=== PATIENT | female | born 1955 | race Caucasian/White ===

== ENCOUNTER 2024-06-23 14:28 | Outpatient (CLI) | payer MEDICARE, SELFPAY ==
--- NOTE | ~2024-06-23 | CT_ITS ---
EXAMINATION: CT sinus wo con DATE: 06/23/2024 14:52 INDICATION: Deviated nasal septum TECHNIQUE: Computed tomography (CT) of the paranasal sinuses was performed without intravenous contra st. The dose-length product was 260.54 mGy-cm. Automated exposure control and iterative reconstructio n technique were employed. COMPARISON: None FINDINGS: No significant nasal septal deviation. There is mild mucosal thickening of the maxillary, e thmoid, sphenoid and frontal sinuses. Mastoids are pneumatized. No mucoperiosteal reaction. Ostiomeat al units are patent. IMPRESSION: 1. Mild pansinus disease. Reviewed, dictated and finalized at location B. IMPRESSION: 1. Mild pansinus disease.
== END 2024-06-23 14:29 | disposition home or self-care (01) ==
PROVIDERS: Visit Provider Nurse Practitioner Family
DX: J32.4 Chronic pansinusitis (principal); J34.2 Deviated nasal septum
CPT/HCPCS: 70486

== ENCOUNTER 2024-12-30 14:13 | Outpatient (CLI) | payer MEDICARE, SELFPAY ==
[2024-12-30 15:59] LABS: Alanine Aminotransferase 22 U/L (6-35); Albumin Level 4.4 g/dL (3.5-5.1); Alkaline Phosphatase 94 U/L (38-126); Anion Gap 8 mmol/L (4-12); Aspartate Amino Transferase 30 U/L (14-36); Bilirubin,Total 0.3 mg/dL (0.2-1.3); Blood Urea Nitrogen 18 mg/dL (7-17); Calcium 9.1 mg/dL (8.4-10.2); Carbon Dioxide 26 mmol/L (22-30); Chloride 106 mmol/L (98-107); Estimated Glomerular Filt Rate > 60; Glucose 122 mg/dL (65-110); Potassium 4.7 mmol/L (3.4-5.0); Sodium 140 mmol/L (137-145); Total Protein 7.3 g/dL (6.3-8.2)
[2024-12-30 16:34] LABS: Thyroid Stimulating Hormone < 0.015 uIU/mL (0.465-4.680)
--- OUTSIDE RECORDS SUMMARY | 2024-12-30 18:19 | XMS_ITS | Clinical Summary ---
Author Organization [facility] Address [address] [place] [address] Phone Care Team Providers Care Strap Making Machine Operator Name Role Phone Devonte Helton MD Primary Care Provider [phone] Allergies No known active allergies Medications levothyroxine (LEVOXYL) 125 mcg tablet Take 125 mcg by mouth daily in the morning. Active sertraline (ZOLOFT) 100 mg tablet Take 100 mg by mouth daily. Active zolpidem (AMBIEN) 5 mg tablet Take 5 mg by mouth nightly as needed for Insomnia. Active Social History Tobacco Use Types Packs/Day Years Used Date Smoking Tobacco: Never Smokeless Tobacco: Never Alcohol Use Standard Drinks/Week Comments Yes 1 (1 standard drink = 0.6 oz pur e alcohol) occasionally Comments No Sex and Gender Information Value Date Recorded Sex Assigned at Not on file Legal Sex Female 4:04 AM FISH FLIPPER Gender Identity Not on file Sexual Orientation Not on file Last Filed Vital Signs Vital Sign Reading Time Taken Comments Blood Pressure 141/84 08/19/2020 10:24 AM CDT Pulse 64 08/19/2020 10:24 AM CDT Temperature 36.5 C (97.7 F) 08/19/2020 9:55 AM CDT Respiratory Rate 16 08/19/2020 10:24 AM CDT Oxygen Saturation 100% 08/19/2020 10:24 AM CDT Inhaled Oxygen Concentration - - Weight 64.9 kg (143 lb) 08/19/2020 6:44 AM CDT Height 165.1 cm (5' 5) 08/19/2020 6:44 AM CDT Body Mass Index 23.8 08/19/2020 6:44 AM CDT Plan of Treatment Health Maintenance Due Date Last Done Comments COLORECTAL SCREENING 2002 Colorectal Cancer Screening 2002 FIT-DNA Q 3 years 2002 FIT/FOBT Q 1 year 2002 Flex Sig/CT Colonography Q 5 years 2002 PNEUMOCOCCAL VACCINE 50+ YEA RS (1 of 1 - PCV) 2007 ZOSTER VACCINE (2 of 2) 09/22/2021 07/28/2021, 12/14 BREAST CANCER SCREENING 04/03/2023 04/03/2022 INFLUENZA VACCINE (#1) 2024 , 01/11/2014, 12/01/2012, Additional history exists OSTEOPOROSIS SCREENING 09/05/2027 09/04/2022 DTAP/TDAP/TD VACCINES (2 - T d or Tdap) 08/30/2031 08/29/2021 RSV VACCINE (60+ or ) (1 - 1-dose 75+ series) 2032 Medical Devices Implanted Type Area Ammonia Box Operator Device Identifier Shelf Expiration Date Model / Serial / Lot Staple Dynanite Sonia [id number] - [id number] Implanted:Qty: 1 on 08/19/2020 by Moshe Quan DPM at [facility] Stap Right: Toe [employer] 05/08/2025 [id number] / / [id number] Description:[id number] Procedures Procedure Name Priority Date/Time Associated Diagnosis Comments XR DEXA BONE DENSITY AXIAL 1 OR MORE SITES Routine 09/04/2022 1:36 PM CDT Menopause MAMMO 3D CONRADO SCREEN IMPL BILAT W OR WO CAD Routine 04/03/2022 3:26 PM FISH FLIPPER Visit for screening mammogram from Last 3 Months or Most Recently Relevant to Health Maintenance Results * (ABNORMAL) XR DEXA BONE DENSITY AXIAL 1 OR MORE SITES (09/04/2022 1:36 PM CDT) T-SCORE FEMORAL NECK (LEFT) -1.00 -1.0 - 1.0 INTERFACE SYSTEM T-SCORE FEMORAL NECK (RIGHT) -1.20(A) -1.0 - 1.0 INTERFACE SYSTEM Anatomical Region Laterality Modality Computed Radiogr aphy 09/04/2022 1:37 PM CDT Impressions 09/04/2022 1:46 PM CDT FINDINGS/IMPRESSION: Osteopenia with a lowest T score of -1.2, previously 0.4. Fracture risk is moderate. FRAX: 10 year probability of major osteoporotic fracture is 8.3 %. 10 year probability of hip fracture is 0.7 %. Please refer to the full report available in [facility] under the PACS Images tab. If a faxed copy is needed, please call [phone]. DICTATION LOCATION: [facility] Narrative 09/04/2022 1:46 PM CDT SUMMARY DEXA REPORT DATE: 09/04/2022 1:36 PM INDICATION: Postmenopausal Procedure Note Alejandra Brody MD - 09/04/2022 SUMMARY DEXA REPORT DATE: 09/04/2022 1:36 PM INDICATION: Postmenopausal FINDINGS/IMPRESSION: Osteopenia with a lowest T score of -1.2, previously 0.4. Fracture risk is moderate. FRAX: 10 year probability of major osteoporotic fracture is 8.3 %. 10 year probability of hip fracture is 0.7 %. Please refer to the full report available in [facility] under the PACS Images tab. If a faxed copy is needed, please call [phone]. DICTATION LOCATION: [facility] us Devonte Helton MD DIAGNOSTIC IMAGING ORDERABLES F inal Result * MAMMO SCRN YARA IMPL 3D CONRADO W OR WO CAD (04/03/2022 3:26 PM FISH FLIPPER) Anatomical Region Laterality Modality Breast Bilateral Mammography 04/03/2022 3:26 PM FISH FLIPPER Impressions 04/05/2022 11:43 AM FISH FLIPPER IMPRESSION: Negative bilateral screening mammogram. Recommend routine followup. OVERALL FINAL ASSESSMENT: BI-RADS CATEGORY 1: Negative DICTATION LOCATION: [facility] Narrative 04/05/2022 11:43 AM FISH FLIPPER BILATERAL SCREENING DIGITAL IMPLANT MAMMOGRAM WITH 3D TOMOSYNTHESIS AND CAD DATE: 04/03/2022 3:26 PM HISTORY: Annual screening study. COMPARISON: Baseline TECHNIQUE: A bilateral screening mammogram was performed. In addition to the standard views, implant displaced views were obtained in two projections, eight views total. Low-dose full-field digital breast tomosynthesis examination was performed with 2D and 3D acquisitions. Examination is read in conjunction with computer aided detection. BREAST COMPOSITION: Scattered fibroglandular densities FINDINGS: No new masses, suspicious calcifications, or areas of asymmetry or distortion are identified. The images were reviewed using the CAD system. Procedure Note Megan Hamm MD - 04/05/2022 BILATERAL SCREENING DIGITAL IMPLANT MAMMOGRAM WITH 3D TOMOSYNTHESIS AND CAD DATE: 04/03/2022 3:26 PM HISTORY: Annual screening study. COMPARISON: Baseline TECHNIQUE: A bilateral screening mammogram was performed. In addition to the standard views, implant displaced views were obtained in two projections, eight views total. Low-dose full-field digital breast tomosynthesis examination was performed with 2D and 3D acquisitions. Examination is read in conjunction with computer aided detection. BREAST COMPOSITION: Scattered fibroglandular densities FINDINGS: No new masses, suspicious calcifications, or areas of asymmetry or distortion are identified. The images were reviewed using the CAD system. IMPRESSION: Negative bilateral screening mammogram. Recommend routine followup. OVERALL FINAL ASSESSMENT: BI-RADS CATEGORY 1: Negative DICTATION LOCATION: [facility] Devonte Helton MD MAMMO ORDERABLES Final Result from Last 3 Months or Most Recently Relevant to Health Maintenance Insurance MEDICARE PART A AND B [facility] [id number] RX [facility] [employer] Care Teams Strap Making Machine Operator Relationship Specialty [place] [address] [address] [facility] [address] [place] [address] PCP - General Internal Medicine 08/19/20
--- OUTSIDE RECORDS SUMMARY | 2024-12-30 18:19 | XMS_ITS | Clinical Summary ---
Author Organization [facility] Address [address] [place] [id number] Care Team Providers Care Wood Fence Installer Name Role Phone Unavailable Primary Care Provider Unavailabl e Social History Tobacco Use Types Packs/Day Years Used Date Smoking Tobacco: Never Assessed Comments Unknown Sex and Gender Information Value Date Recorded Sex Assigned at Not on file Legal Sex Female 6:23 PM CDT Gender Identity Not on file Sexual Orientation Not on file Plan of Treatment Health Maintenance Due Date Last Done Comments Colorectal Cancer Screening Colonoscopy (10 Years) 1957 Hepatitis C 1975 DTaP, Tdap and Td Vaccines ( 1 - Tdap) 1976 Mammogram Screening 1997 Pneumococcal Vaccine: 50+ Ye ars (1 of 1 - PCV) 2007 Zoster Vaccines (1 of 2) 2007 Dexa Scan (General) 2022 COVID-19 Vaccine ( - 2023-2 5 season) 2024 Influenza Adult (#1) 2024 RSV Immunization or 60+ Years (1 - 1-dose 75+ series) 2032 Hepatitis A Vaccines Aged Out No long er eligible based on patient's age to complete this topic Meningococcal B Vaccine Aged Out No l onger eligible based on patient's age to complete this topic Meningococcal Vaccine Aged Out No judie lilliam eligible based on patient's age to complete this topic RSV Immunizations Under 20 Months Aged Out No longer eligible based on patient's age to complete this topic
--- OUTSIDE RECORDS SUMMARY | 2024-12-30 18:19 | XMS_ITS | Clinical Summary ---
Author Organization [facility] Address [address] [place] [address] Care Team Providers Care Loader Engineer Name Role Phone Devonte Helton MD Primary Care Provider [phone] Source Comments [facility],non-owned Affiliates and Associated Physician Practices is amultiple site organization consisting of ambulatory clinics and hospital sitesin [place], [place], [place] and [place]. This disclosure is being madepursuant to the Care Everywhere program and may not contain all information available regarding this patient. Last updated 17.[facility] Allergies No known active allergies Medications * Be aware that medications may not be up to date on this document. Alwaysverify current medications with the patient. levothyroxine (LEVOXYL) 100 MCG tablet Take 100 mcg by mouth daily before breakfast. Active oxycodone-acetam inophen (PERCOCET) 5-325 MG tablet Take 1-2 Tabs by mouth every 4 hours as needed for Pain. 50 Tab 0 06/13/2012 Active ibuprofen (MOTRIN) 800 MG tablet Take 1 Tab by mouth 3 times daily as needed for Pain. 90 Tab 0 06/13/2012 Active Active Problems No known active problems Social History Tobacco Use Types Packs/Day Years Used Date Smoking Tobacco: Never Smokeless Tobacco: Never Alcohol Use Standard Drinks/Week Comments No 0 (1 standard drink = 0.6 oz pur e alcohol) Comments No Sex and Gender Information Value Date Recorded Sex Assigned at Not on file Legal Sex Female 3:20 PM CDT Gender Identity Not on file Sexual Orientation Not on file Last Filed Vital Signs Vital Sign Reading Time Taken Comments Blood Pressure 116/73 06/13/2012 11:35 AM CDT Pulse 65 06/13/2012 11:35 AM CDT Temperature 36.1 C (97 F) 06/13/2012 12:07 PM CDT Respiratory Rate 16 06/13/2012 11:35 AM CDT Oxygen Saturation 97% 06/13/2012 11:35 AM CDT Inhaled Oxygen Concentration - - Weight 64.4 kg (142 lb) 06/13/2012 6:00 AM CDT Height 167.6 cm (5' 6) 06/13/2012 6:00 AM CDT Body Mass Index 22.92 06/13/2012 6:00 AM CDT Plan of Treatment Health Maintenance Due Date Last Done Comments BONE DENSITY TESTING 1957 COLOGUARD (AGES 45-75) - COL ON CA SCREENING 1957 COLON MONITORING 1957 COLONOSCOPY - COLON CA SCREENING 1957 CT COLONOGRAPHY - COLON CA SCREENING 1957 Colorectal Cancer Screening 1957 FIT - COLON CA SCREENING 1957 FLEX SIG - COLON CA SCREENING 1957 LIPID TESTING 1957 MAMMOGRAM 1957 HEPATITIS C SCREENING 04/16/1975 DTAP/TDAP/TD VACCINES (1 - Tdap) 1976 PNEUMOCOCCAL VACCINE 50+ (1 of 1 - PCV) 2007 ZOSTER VACCINE (1 of 2) 2007 DEPRESSION SCREENING 03/11/2024 COVID-19 VACCINE (1 - 2023-2 5 season) 2024 INFLUENZA VACCINE (#1) 2024 Respiratory Syncytial Virus (RSV) Vaccine Pt: or over 60 yrs (1 - 1-dose 75+ series) 2032 HEPATITIS B VACCINE Aged Out No longe r eligible based on patient's age to complete this topic HIB VACCINE Aged Out No longer eligi ble based on patient's age to complete this topic HPV VACCINE Aged Out No longer eligi ble based on patient's age to complete this topic MENINGOCOCCAL (Group B) VACC INE SHARED DECISION-MAKING Aged Out No longer eligibl e based on patient's age to complete this topic MENINGOCOCCAL GROUPS A/C/Y/W VACCINE Aged Out No longer eligible b ased on patient's age to complete this topic Medical Devices Implanted Type Area Window Unit Air Conditioning Mechanic Device Identifier Shelf Expiration Date Model / Serial / Lot Suture [place] Implanted:Qty: 2 on 06/13/2012 by Daryn Bosch MD at [facility] Left: Shoulder 03/11/2017 [id number] / / [id number] Insurance [employer] Care Teams Loader Engineer Relationship Specialty Start Date End Date Devonte Helton MD PCP - General Internal Medicine 06/12/12
== END 2024-12-30 14:14 | disposition home or self-care (01) ==
LOC: ANHGOSHLAB 14:14
PROVIDERS: PCP Family Medicine; Visit Provider Family Medicine
DX: E03.9 Hypothyroidism, unspecified (principal)
CPT/HCPCS: 36415; 80053; 84443